=== PATIENT | male | born 1990 | race American Indian/Alaskan Native ===

== ENCOUNTER 2018-02-23 17:15 | Inpatient (IN) | payer OTHER ==
[2018-02-23] MEDS ORDERED: NACL 0.9% 1000 ML 1,000 ML ONE (17:43)
[2018-02-23] MEDS ORDERED: NACL 0.9% 1000 ML 1,000 ML IV ONE ×2 (17:46→18:40)
--- NOTE | 2018-02-23 17:52 | Emergency Department Report ---
- General Stated complaint: DEHYDRATED/LOW BLOOD SUGAR Time Seen by Provider: 02/23/18 17:41 Source: patient, EMS - History of Present Illness Initial comments: Mr devine is a 27 year-old man without reported PMH who presents with muscle cramps, nausea. Was playing football outside today for two hours when he started getting cramps in his hands. EMS called and he was found to have a blood sugar in jadyn 30s. Given 1/2amp of D50. Now cmoplaints of cramping in his chest and stomach as well as his hands. No other complaints. Has been well recently per patient. ED Review of Systems ROS: Stated complaint: DEHYDRATED/LOW BLOOD SUGAR Other details as noted in HPI Comment: All other systems reviewed and negative ED Physical Exam - General General appearance: alert, anxious, other (diaphoretic) - Head Head exam: Present: atraumatic, normocephalic - Eye Eye exam: Present: normal appearance, PERRL, EOMI. Absent: scleral icterus, conjunctival injection - ENT ENT exam: Present: normal exam, mucous membranes dry - Neck Neck exam: Present: normal inspection, full ROM. Absent: tenderness, meningismus, lymphadenopathy - Respiratory Respiratory exam: Present: normal lung sounds bilaterally. Absent: respiratory distress, wheezes, rales, rhonchi - Cardiovascular Cardiovascular Exam: Present: regular rate, normal rhythm, normal heart sounds. Absent: systolic murmur, diastolic murmur - GI/Abdominal GI/Abdominal exam: Present: soft. Absent: distended, tenderness, guarding, rebound - Extremities Exam Extremities exam: Present: normal inspection, full ROM. Absent: tenderness, pedal edema, joint swelling, calf tenderness - Back Exam Back exam: Present: normal inspection. Absent: tenderness, CVA tenderness (R), CVA tenderness (L), muscle spasm - Neurological Exam Neurological exam: Present: alert, oriented X3, CN II-XII intact. Absent: motor sensory deficit - Psychiatric Psychiatric exam: Present: normal affect, normal mood - Skin Skin exam: Present: warm, intact, diaphoretic ED Course Vital Signs 02/23/18 02/23/18 02/23/18 17:30 17:35 17:46 Temperature 98.2 F Pulse Rate 93 H 86 Respiratory 12 23 Rate Blood Pressure 98/63 O2 Sat by Pulse 100 100 Oximetry 07/02/23/18 02/23/18 18:00 18:16 18:30 Temperature Pulse Rate 81 81 79 Respiratory 20 22 29 H Rate Blood Pressure 99/57 98/63 98/63 O2 Sat by Pulse 100 78 L Oximetry 02/23/18 18:46 Temperature Pulse Rate 73 Respiratory 22 Rate Blood Pressure O2 Sat by Pulse 98 Oximetry ED Medical Decision Making - Lab Data Result diagrams: 02/23/18 18:19 02/23/18 18:19 Lab Results 02/23/18 02/23/18 02/23/18 Range/Units 18:05 18:19 18:19 WBC 10.2 (4.5-11.0) K/mm3 RBC 5.05 H (3.65-5.03) M/mm3 Hgb 15.8 H (11.8-15.2) gm/dl Hct 43.4 (35.5-45.6) % MCV 86 (84-94) fl MCH 31 (28-32) pg MCHC 36 H (32-34) % RDW 14.2 (13.2-15.2) % Plt Count 289 (140-440) K/mm3 Lymph % (Auto) 7.7 L (13.4-35.0) % [place] % (Auto) 10.3 H (0.0-7.3) % Eos % (Auto) 0.0 (0.0-4.3) % Baso % (Auto) 0.4 (0.0-1.8) % Lymph # 0.8 L (1.2-5.4) K/mm3 [place] # 1.0 H (0.0-0.8) K/mm3 Eos # 0.0 (0.0-0.4) K/mm3 Baso # 0.0 (0.0-0.1) K/mm3 Seg Neutrophils % 81.6 H (40.0-70.0) % Seg Neutrophils # 8.3 H (1.8-7.7) K/mm3 Sodium 137 (137-145) mmol/L Potassium 3.6 (3.6-5.0) mmol/L Chloride 93.7 L (98-107) mmol/L Carbon Dioxide 18 L (22-30) mmol/L Anion Gap 29 mmol/L BUN 15 (9-20) mg/dL Creatinine 2.4 H (0.8-1.5) mg/dL Estimated GFR 39 ml/min BUN/Creatinine Ratio 6 % Glucose 126 H (75-100) mg/dL POC Glucose 116 H (70-105) Calcium 11.0 H (8.4-10.2) mg/dL Magnesium 1.80 (1.7-2.3) mg/dL Total Bilirubin 2.30 H (0.1-1.2) mg/dL AST 30 (5-40) units/L ALT 22 (7-56) units/L Alkaline Phosphatase 78 (35-129) units/L Total Creatine Kinase 448 H (55-170) units/L Troponin T < 0.010 (0.00-0.029) ng/mL Total Protein 8.6 H (6.3-8.2) g/dL Albumin 5.2 H (3.9-5) g/dL Albumin/Globulin Ratio 1.5 % Lipase 17 (13-60) units/L - EKG Data 02/23/18 17:54 HR 87, sinus, normal axis, intervals wnl, no ST changes concerning for acute ischemia. possible U waves - Medical Decision Making Mr devine is a 27 year-old man who presents with nausea, cramping after playing football outside for two hours. VS normal on arrival, Temp 98.2F. EKG non-ischemic. BS 116. Suspect this is rhabomyolysis vs dehydration vs electrolyte derangement vs ACS. Trop neg. Lytes with evidence of dehydration. Cr elevated, normal BUN. Hyper calcemia. Mildly elevated CK. Tbili elevated. hgb 15, likely hemoconcetration. [id number] NS and zofran with improvement in symptoms. Admit to medicine for GIANNA. Suspect this could be hemolysis causing elevated protein and elevated tbili. Critical care attestation.: If time is entered above; I have spent that time in minutes in the direct care of this critically ill patient, excluding procedure time. ED Disposition Clinical Impression: Dehydration, Hypercalcemia Disposition: OP ADMIT IP TO THIS HOSP Is pt being admited?: Yes Does the pt Need Aspirin: No Condition: Stable Referrals: PRIMARY CARE, [Primary Care Provider] - 3-5 Days
[2018-02-23] MEDS ORDERED: ZOFRAN IV ONE (18:01)
[2018-02-23 18:33] LABS: Basophils % (Auto) 0.4 % (0.0-1.8); Lymphocytes # (Auto) 0.8 K/mm3 (1.2-5.4); Lymphocytes % (Auto) 7.7 % (13.4-35.0); Mean Corpuscular HGB Conc 36 % (32-34); Mean Corpuscular Hemoglobin 31 pg (28-32); Mean Corpuscular Volume 86 fl (84-94); Monocytes % (Auto) 10.3 % (0.0-7.3); Platelet Count 289 K/mm3 (140-440); Red Blood Count 5.05 M/mm3 (3.65-5.03); Red Cell Distribution Width 14.2 % (13.2-15.2)
[2018-02-23] MEDS ORDERED: SUBLIMAZE IV ONE (18:39)
[2018-02-23 18:40] LABS: Hematocrit 43.4 % (35.5-45.6); Hemoglobin 15.8 gm/dl (11.8-15.2)
[2018-02-23 18:50] LABS: Alanine Aminotransferase 22 units/L (7-56); Albumin 5.2 g/dL (3.9-5); BUN/Creatinine Ratio 6; Blood Urea Nitrogen 15 mg/dL (9-20); Hemolysis Index 5; Lipase 17 units/L (13-60)
--- NOTE | 2018-02-23 19:03 | History and Physical Report ---
History of Present Illness Chief complaint: I feel weak, and i'm cramping all over History of present illness: 27 YO Male with No PMH presents to ED for evaluation. Pt states that he has experienced lightheadedness, muscle cramps, nausea after playing football outside today for approximately 2 hours. EMS notified, and upon arrival the patient was found to have a serum glucose in the 30's. Pt transported to [facility] for further care and evaluation. Pt seen and evaluated in ED and found to have Acute Renal Failure, as well as Acidosis. Pt admitted to medical floor. Nephrology consulted in ED. No reports of fever, chills, CP, palpitations, Syncope, Trauma, BRBPR, unintentional weight loss, night sweats, individual/ family history of autoimmune disease(SLE, fibromyalgia, Sjogrens). Pt denies use of herbal supplements, creatine, or preworkout supplements. Past History Past Medical History: No medical history, other (reviewed) Past Surgical History: No surgical history, Other (reviewed) Social history: single, lives with family Family history: no significant family history (reviewed) Medications and Allergies Active Meds: Active Medications Sodium Chloride (Nacl 0.9% 1000 Ml) 1,000 mls @ 999 mls/hr IV BOLUS ONE Stop: 02/23/18 19:40 Last Admin: 02/23/18 18:45 Dose: 999 mls/hr Review of Systems Constitutional: fatigue, weakness, no weight loss, no weight gain, no fever, no chills Ears, nose, mouth and throat: no ear pain, no ear discharge, no tinnitis, no decreased hearing, no nose pain, no nasal congestion, no nasal discharge Cardiovascular: no chest pain, no orthopnea, no palpitations, no rapid/ irregular heart beat, no edema Respiratory: no cough, no cough with sputum Gastrointestinal: nausea, no diarrhea, no constipation, no change in bowel habits, no hematemesis, no melena Genitourinary Male: no hematuria, no flank pain, no discharge, no urinary frequency, no urinary hesitancy, no nocturia, no incontinence Rectal: no pain, no incontinence, no bleeding Musculoskeletal: no neck stiffness, no neck pain, no shooting arm pain, no arm numbness/tingling, no leg numbness/tingling Integumentary: no rash, no pruritis, no redness, no sores, no wounds, no jaundice Neurological: no paralysis, no weakness, no parathesias, no numbness, no tingling, no seizures, no syncope Psychiatric: no anxiety, no memory loss, no change in sleep habits, no sleep disturbances, no insomnia, no hypersomnia, no change in appetite Endocrine: no cold intolerance, no heat intolerance, no polyphagia, no excessive thirst, no polydipsia, no polyuria, no nocturia Hematologic/Lymphatic: no easy bruising, no easy bleeding, no lymphadenopathy, no lymphedema Allergic/Immunologic: no urticaria, no allergic rhinitis, no wheezing, no persistent infections, no anaphylaxis, no angioedema Exam - Constitutional Vitals: Temp Pulse Resp BP Pulse Ox 98.2 F 73 22 98/63 98 02/23/18 17:30 02/23/18 18:46 02/23/18 18:46 02/23/18 18:30 02/23/18 18:46 General appearance: Present: mild distress - EENT Eyes: Present: PERRL ENT: hearing intact, clear oral mucosa - Neck Neck: Present: supple, normal ROM - Respiratory Respiratory effort: normal Respiratory: bilateral: CTA - Cardiovascular Heart Sounds: Present: S1 & S2. Absent: rub, click - Extremities Extremities: pulses symmetrical, No edema Peripheral Pulses: within normal limits - Abdominal General gastrointestinal: Present: soft, non-tender, non-distended, normal bowel sounds Male genitourinary: Present: normal - Integumentary Integumentary: Present: clear, dry, clammy, decreased turgor - Musculoskeletal Musculoskeletal: generalized weakness - Psychiatric Psychiatric: appropriate mood/affect, intact judgment & insight - Neurologic Neurologic: CNII-XII intact, moves all extremities Results - Labs CBC & Chem 7: 02/23/18 18:19 02/23/18 18:19 Labs: Abnormal lab results 02/23/18 02/23/18 02/23/18 Range/Units 18:05 18:19 18:19 RBC 5.05 H (3.65-5.03) M/mm3 Hgb 15.8 H (11.8-15.2) gm/dl MCHC 36 H (32-34) % Lymph % (Auto) 7.7 L (13.4-35.0) % [place] % (Auto) 10.3 H (0.0-7.3) % Lymph # 0.8 L (1.2-5.4) K/mm3 [place] # 1.0 H (0.0-0.8) K/mm3 Seg Neutrophils % 81.6 H (40.0-70.0) % Seg Neutrophils # 8.3 H (1.8-7.7) K/mm3 Chloride 93.7 L (98-107) mmol/L Carbon Dioxide 18 L (22-30) mmol/L Creatinine 2.4 H (0.8-1.5) mg/dL Glucose 126 H (75-100) mg/dL POC Glucose 116 H (70-105) Calcium 11.0 H (8.4-10.2) mg/dL Total Bilirubin 2.30 H (0.1-1.2) mg/dL Total Creatine Kinase 448 H (55-170) units/L Total Protein 8.6 H (6.3-8.2) g/dL Albumin 5.2 H (3.9-5) g/dL Assessment and Plan - Patient Problems (1) ARF (acute renal failure) with tubular necrosis Current Visit: Yes Status: Acute Plan to address problem: IVF resuscitation therapy, monitor uop q shift, urine electrolytes, renal ultrasound (2) Acidosis Current Visit: Yes Status: Acute Plan to address problem: repeat lactic acid, IVF resiscitation therapy (3) Hyperbilirubinemia Current Visit: Yes Status: Acute Plan to address problem: IVF resuscitation, supportive care, LFT, supportive care. (4) DVT prophylaxis Current Visit: Yes Status: Acute Plan to address problem: SCD to BLE while in bed.
[2018-02-23] MEDS ORDERED: PROVENTIL IH PRN (19:09)
[2018-02-23] MEDS ORDERED: SODIUM CHLORIDE FLUSH SYRINGE 10 ML IV PRN (19:09)
[2018-02-23] MEDS ORDERED: ZOFRAN IV PRN (19:09)
[2018-02-23] MEDS ORDERED: TYLENOL PO PRN (19:09)
--- NOTE | 2018-02-23 20:29 | Ultrasound Report ---
FINAL REPORT EXAM: US RENAL BILAT HISTORY: renal failure TECHNIQUE: Real-time sonography was performed of the kidneys and bladder and images are submitted for interpretation. PRIORS: None. FINDINGS: The kidneys appear normal in size, shape and echogenicity. There is no hydronephrosis. There are no focal renal lesions. The bladder appears normal. The right kidney measures 11.2 x 4.5 x 5.3 cm and the left measures 11.6 x 6.7 x 6 3. IMPRESSION: Normal kidney and bladder ultrasound.
[2018-02-23] MEDS: NACL 0.45% 1000 ML 1,000 ML IV SCH (20:31)
[2018-02-23 20:56] LABS: Iron 59 ug/dL (49-181); Total Iron Binding Capacity 258 mcg/dL (250-450)
[2018-02-23] MEDS: SODIUM CHLORIDE FLUSH SYRINGE 10 ML IV SCH (22:00)
[2018-02-24] MEDS: NACL 0.45% 1000 ML 1,000 ML IV SCH ×3 (04:12→22:18)
[2018-02-24 08:51] LABS: Albumin 4.1 g/dL (3.9-5); Calcium 9.1 mg/dL (8.4-10.2)
[2018-02-24 08:52] LABS: Hemoglobin 14.1 gm/dl (11.8-15.2); Mean Corpuscular HGB Conc 34 % (32-34); Mean Corpuscular Hemoglobin 30 pg (28-32); Mean Corpuscular Volume 90 fl (84-94); Platelet Count 238 K/mm3 (140-440); Red Blood Count 4.68 M/mm3 (3.65-5.03); Red Cell Distribution Width 14.6 % (13.2-15.2)
--- NOTE | 2018-02-24 09:52 | Consultation ---
History of Present Illness - Reason for Consult Consult date: 02/24/18 acute renal failure - History of Present Illness The patient is a 27 YO Male with no medical history who presented to the ED yesterday for evaluation of lightheadedness, muscle cramps, nausea and vomiting. After playing football outside yesterday developed lightheadedness, nausea, vomiting muscle cramps. His blood sugar was in the 30's in the field. Patient denies any abd pain, cp, sob, fever, chills, syncope, rash, dysuria, hematuria or confusion. His symptoms are better now. His creatinine was 2.4, Ca 11, bicarb 18 and CK 448 on admission. Patient denies any NSAID intake. Past History Past Medical History: No medical history Past Surgical History: No surgical history, Other (reviewed) Social history: single, lives with family Family history: no significant family history (reviewed) Medications and Allergies Allergies Allergy/AdvReac Type Severity Reaction Status Date / Time No Known Allergies Allergy Unverified 02/23/18 19:54 Active Meds: Active Medications Acetaminophen (Tylenol) 650 mg PO Q4H PRN PRN Reason: Pain MILD(1-3)/Fever >100.5/RIGGS Albuterol (Proventil) 2.5 mg IH Q4H PRN PRN Reason: Shortness Of Breath Sodium Chloride (Nacl 0.45% 1000 Ml) 1,000 mls @ 150 mls/hr IV DIRECT [facility] Last Admin: 02/24/18 04:12 Dose: 150 mls/hr Ondansetron HCl (Zofran) 4 mg IV Q8H PRN PRN Reason: Nausea And Vomiting Sodium Chloride (Sodium Chloride Flush Syringe 10 Ml) 10 ml IV BID [facility] Last Admin: 02/23/18 22:00 Dose: 10 ml Sodium Chloride (Sodium Chloride Flush Syringe 10 Ml) 10 ml IV PRN PRN PRN Reason: LINE FLUSH Review of Systems Constitutional: no weight loss, no weight gain, no fever, no chills, no anorexia , no weakness Cardiovascular: lightheadedness, no chest pain, no orthopnea, no edema, no syncope, no shortness of breath, no high blood pressure, no leg edema Respiratory: no cough, no hemoptysis, no shortness of breath Gastrointestinal: nausea, vomiting, no abdominal pain, no diarrhea Genitourinary Male: no dysuria, no hematuria, no kidney stones Integumentary: no rash, no wounds, no jaundice Neurological: no paralysis, no seizures, no syncope, no convulsions, no change in speech, no change in mentation, no confusion, no memory loss Exam - Vital Signs Vital signs: Vital Signs Temp Pulse Ox 98.2 F 100 02/23/18 17:30 02/23/18 17:30 - General Appearance General appearance: well-developed, well-nourished, appears stated age, other ( no distress) EENT: ATNC, PERRL, mucous membranes moist, hearing intact, vision intact Neck: Present: neck supple, trachea midline Respiratory: Clear to Ascultation Heart: regular, S1S2, no murmurs Gastrointestinal: Present: normoactive bowel sounds. Absent: tenderness Integumentary: no rash, warm and dry Neurologic: no focal deficit, no asterixis, alert and oriented x3 Musculoskeletal: Present: other (no edema) Psychiatric: cooperative Results - Lab Results 02/24/18 08:02 02/24/18 08:02 Most recent lab results Calcium 9.1 mg/dL (8.4-10.2) D 02/24/18 08:02 Phosphorus 3.20 mg/dL (2.5-4.5) 02/24/18 08:02 Magnesium 2.00 mg/dL (1.7-2.3) 02/24/18 08:02 - Image Kidney/bladder ultrasound: report reviewed Assessment and Plan 1. Acute kidney injury: GIANNA likely Vasomotor / hemodynamically mediated in the setting of volume depletion. Renal function is improving. Continue IV fluids. 2. Mild Rhabdomyolysis: Continue IV fluids. 3. Metabolic acidosis: Improving. 4. Hypercalcemia: Improved.
--- NOTE | 2018-02-24 10:00 | Progress Note ---
Assessment and Plan ARF: -IVF, renal US was normal. Acidosis; -IVF, lactic acid nl Hyperbilirubinemia: IVF, f/u LFTs, supportive care. DVT prophylaxis with SCD Subjective Date of service: 02/24/18 Objective - Constitutional Vitals: Vital Signs - 12hr 02/23/18 02/24/18 23:18 05:34 Temperature 99.2 F 98.0 F Pulse Rate 57 L 65 Respiratory 18 18 Rate Blood Pressure 106/63 97/47 O2 Sat by Pulse 100 99 Oximetry General appearance: Present: no acute distress, well-nourished - EENT Eyes: PERRL, EOM intact ENT: hearing intact, clear oral mucosa Ears: bilateral: normal - Neck Neck: supple, normal ROM - Respiratory Respiratory effort: normal Respiratory: bilateral: CTA - Breasts Breasts: deferred - Cardiovascular Rhythm: regular Heart Sounds: Present: S1 & S2. Absent: gallop, rub Extremities: pulses intact, No edema, normal color, Full ROM - Gastrointestinal General gastrointestinal: Present: soft, non-tender, non-distended, normal bowel sounds Rectal Exam: deferred - Genitourinary Male genitourinary: deferred - Integumentary Integumentary: clear, warm, dry - Musculoskeletal Musculoskeletal: 1, strength equal bilaterally - Neurologic Neurologic: moves all extremities - Psychiatric Psychiatric: appropriate mood/affect, cooperative - Labs CBC & Chem 7: 02/24/18 08:02 02/24/18 08:02 Labs: Abnormal lab results 02/23/18 02/23/18 02/23/18 Range/Units 18:05 18:19 18:19 RBC 5.05 H (3.65-5.03) M/mm3 Hgb 15.8 H (11.8-15.2) gm/dl MCHC 36 H (32-34) % Lymph % (Auto) 7.7 L (13.4-35.0) % [place] % (Auto) 10.3 H (0.0-7.3) % Lymph # 0.8 L (1.2-5.4) K/mm3 [place] # 1.0 H (0.0-0.8) K/mm3 Seg Neutrophils % 81.6 H (40.0-70.0) % Seg Neutrophils # 8.3 H (1.8-7.7) K/mm3 Chloride 93.7 L (98-107) mmol/L Carbon Dioxide 18 L (22-30) mmol/L Creatinine 2.4 H (0.8-1.5) mg/dL Glucose 126 H (75-100) mg/dL POC Glucose 116 H (70-105) Calcium 11.0 H (8.4-10.2) mg/dL Total Bilirubin 2.30 H (0.1-1.2) mg/dL Total Creatine Kinase 448 H (55-170) units/L Total Protein 8.6 H (6.3-8.2) g/dL Albumin 5.2 H (3.9-5) g/dL 02/24/18 Range/Units 08:02 RBC (3.65-5.03) M/mm3 Hgb (11.8-15.2) gm/dl MCHC (32-34) % Lymph % (Auto) (13.4-35.0) % [place] % (Auto) (0.0-7.3) % Lymph # (1.2-5.4) K/mm3 [place] # (0.0-0.8) K/mm3 Seg Neutrophils % (40.0-70.0) % Seg Neutrophils # (1.8-7.7) K/mm3 Chloride (98-107) mmol/L Carbon Dioxide (22-30) mmol/L Creatinine 1.7 H (0.8-1.5) mg/dL Glucose (75-100) mg/dL POC Glucose (70-105) Calcium (8.4-10.2) mg/dL Total Bilirubin 1.90 H (0.1-1.2) mg/dL Total Creatine Kinase 846 H (55-170) units/L Total Protein (6.3-8.2) g/dL Albumin (3.9-5) g/dL
[2018-02-24] MEDS: SODIUM CHLORIDE FLUSH SYRINGE 10 ML IV SCH ×2 (10:10→22:20)
[2018-02-24 10:11] LABS: Bilirubin,Urine NEG (Negative); Blood,Urine NEG (Negative); Color,Urine Yellow (Yellow); Mucus,Urine 1+ /HPF
[2018-02-24 12:49] LABS: Creatinine,Urine 497.9 mg/dL (0.1-20.0)
[2018-02-25] MEDS: NACL 0.45% 1000 ML 1,000 ML IV SCH (04:27)
[2018-02-25 05:48] VITALS: BP 94/50
[2018-02-25 06:58] LABS: Basophils % (Auto) 0.8 % (0.0-1.8); Eosinophils # (Auto) 0.1 K/mm3 (0.0-0.4); Eosinophils % (Auto) 1.6 % (0.0-4.3); Hematocrit 37.9 % (35.5-45.6); Hemoglobin 12.9 gm/dl (11.8-15.2); Lymphocytes # (Auto) 2.2 K/mm3 (1.2-5.4); Lymphocytes % (Auto) 42.5 % (13.4-35.0); Mean Corpuscular HGB Conc 34 % (32-34); Mean Corpuscular Hemoglobin 30 pg (28-32); Mean Corpuscular Volume 89 fl (84-94); Monocytes # (Auto) 0.6 K/mm3 (0.0-0.8); Monocytes % (Auto) 10.5 % (0.0-7.3); Platelet Count 210 K/mm3 (140-440); Red Blood Count 4.27 M/mm3 (3.65-5.03); Red Cell Distribution Width 14.7 % (13.2-15.2)
[2018-02-25 08:12] LABS: Alanine Aminotransferase 18 units/L (7-56); Albumin 3.5 g/dL (3.9-5); BUN/Creatinine Ratio 14; Blood Urea Nitrogen 14 mg/dL (9-20); Calcium 8.9 mg/dL (8.4-10.2); Hemolysis Index 2
--- NOTE | 2018-02-25 08:42 | Progress Note ---
Assessment and Plan 1. Acute kidney injury: GIANNA likely Vasomotor / hemodynamically mediated in the setting of volume depletion. Renal function is much better. Encouraged PO fluid intake. 2. Mild Rhabdomyolysis: Improving. 3. Metabolic acidosis: Improved. 4. Hypercalcemia: Improved. F/u with me in 1 week. Subjective Date of service: 02/25/18 Interval history: Patient is feeling better. Objective - Vital Signs Vital signs: Vital Signs - 12hr 02/24/18 02/25/18 21:50 05:39 Temperature 98.6 F 98.0 F Pulse Rate 60 63 Respiratory 16 16 Rate Blood Pressure 111/72 94/50 O2 Sat by Pulse 98 99 Oximetry - General Appearance General appearance: well-developed, well-nourished, appears stated age, other ( no distress) EENT: ATNC, PERRL, mucous membranes moist, hearing intact, vision intact Neck: supple Respiratory: Present: Clear to Ascultation Cardiology: regular, S1S2, no murmurs Gastrointestinal: normoactive bowel sounds, no tenderness Integumentary: no rash, warm and dry Neurologic: no focal deficit, no asterixis, alert and oriented x3 Musculoskeletal: other (no edema) Psychiatric: mood/affect appropriate, cooperative - Lab 02/25/18 05:50 02/25/18 05:50 Most recent lab results Calcium 8.9 mg/dL (8.4-10.2) 02/25/18 05:50 Phosphorus 3.80 mg/dL (2.5-4.5) 02/25/18 05:50 Magnesium 1.70 mg/dL (1.7-2.3) 02/25/18 05:50 Urine Creatinine 497.9 mg/dL (0.1-20.0) H 02/24/18 08:52 Urine Sodium 87 mmol/L 02/24/18 08:52
--- NOTE | 2018-02-25 08:58 | Discharge Summary ---
Providers - Providers Date of Admission: 02/23/18 19:09 Date of discharge: 02/25/18 Attending physician: JUANCARLOS GUZMÁN 02/23/18 19:09 Consult to Physician [CONS] Routine Comment: Consulting Provider: BRENDA GARCIA Physician Instructions: Reason For Exam: renal failure Primary care physician: RELIEF MAN Hospitalization Reason for admission: acute renal failure, rhabdomyolysis Condition: Stable Pertinent studies: Renal ultrasound Procedures: None Hospital course: 27 YO Male with No PMH presents to ED for evaluation. Pt states that he has experienced lightheadedness, muscle cramps, nausea after playing football outside today for approximately 2 hours. EMS notified, and upon arrival the patient was found to have a serum glucose in the 30's. Pt transported to [facility] for further care and evaluation. Pt seen and evaluated in ED and found to have Acute Renal Failure, as well as Acidosis. Pt admitted to medical floor. Nephrology consulted in ED. No reports of fever, chills, CP, palpitations, Syncope, Trauma, BRBPR, unintentional weight loss, night sweats, individual/ family history of autoimmune disease(SLE, fibromyalgia, Sjogrens). Pt denies use of herbal supplements, creatine, or preworkout supplements. On admission creatinine was 2.4. Fowler was 11.0. Bilirubin was 2.3. Total creatinine kinase was 846. Patient was commenced on IV hydration. Renal ultrasound was unremarkable. Nephrology consult was obtained. Generalized was body ache resolved. BUN was reverted to normal. Creatinine kinase improved. Patient is therefore being discharged to follow up with primary care physician in 3-5 days. I advised to continue to hydrate himself. Potassium level had reverted to normal at 8.9. Disposition: DC-01 TO HOME OR SELFCARE Time spent for discharge: 36 minutes - Discharge Diagnoses (1) ARF (acute renal failure) with tubular necrosis Status: Acute (2) Acidosis Status: Acute (3) Dehydration Status: Acute (4) Hyperbilirubinemia Status: Acute (5) Hypercalcemia Status: Acute Core Measure Documentation - Palliative Care Palliative Care/ Comfort Measures: Not Applicable Exam - Physical Exam Narrative exam: Constitutional: Well-nourished well-developed. In no distress Head: Normocephalic atraumatic Eyes: Pupils are equal round and reactive to light Nose: No enlarged turbinates, no septal deviation. Mouth: Moist mucous membranes. Neck: Supple no thyromegaly. No bruit. No JVD Heart: Regular rate and rhythm, S1-S2 abnormal. No rubs murmurs or gallop Lungs: Clear to auscultation bilaterally no rales or rhonchi Abdomen: Soft, nontender. Bowel sound are present. Extremities: No edema no cyanosis and no clubbing. Neuro: Alert oriented Oriented x3. No focal sensory or motor deficit. Skin: No rashes no hyperemic spots Psychiatry: Euthymic. Calm. - Constitutional Vitals: Temp Pulse Resp BP Pulse Ox 98.0 F 63 16 94/50 99 02/25/18 05:39 02/25/18 05:39 02/25/18 05:39 02/25/18 05:39 02/25/18 05:39 Plan Activity: advance as tolerated Weight Bearing Status: Weight Bear as Tolerated Diet: regular Follow up with: PRIMARY CARE, [Primary Care Provider] - 3-5 Days Prescriptions: Acetaminophen [Acetaminophen TAB] 325 mg PO Q4H PRN #20 tablet PRN Reason: Pain MILD(1-3)/Fever >100.5/RIGGS
[2018-02-25] MEDS: SODIUM CHLORIDE FLUSH SYRINGE 10 ML IV SCH (10:27)
== END 2018-02-25 12:09 | disposition home or self-care (01) | DRG 557 ==
LOC: ED 17:15 → 3A 19:09
PROVIDERS: ADMIT Internal Medicine; ATTEND Family Medicine
DX: M62.82 Rhabdomyolysis (principal); N17.0 Acute kidney failure with tubular necrosis; E87.2 Acidosis; E80.6 Other disorders of bilirubin metabolism; E83.52 Hypercalcemia; E86.0 Dehydration
CPT/HCPCS: 36415; 76770; 80053; 81001; 82140; 82550; 82570; 82962; 83550; 83690; 83735; 84100; 84300; 84484; 85025; 85027; 93005; 93010; 96361; 96374; 96375; J2405; J3010; J7030